=== PATIENT | female | born 1990 | race African-American/Black ===

== ENCOUNTER 2020-08-15 17:42 | Observation (INO) ==
[2020-08-15] MEDS ORDERED: ONDANSETRON 4 MG/2 ML VIAL IV STA (18:50)
[2020-08-15] MEDS ORDERED: SODIUM CHLORIDE 0.9% 500 ML IV STA (18:50)
[2020-08-15 19:19] LABS: Basophils % 0.4 % (0.0-0.8); Eosinophils % 0.4 % (0.00-10.9); Hematocrit 26.2 VOL% (35.7-47.0); Hemoglobin 7.6 GM/DL (12.0-16.0); Immature Granulocytes % 0.4 %; Immature Granulocytes Absolute 0.02 #; Lymphocytes # 0.7 10*3/uL (1.4-4.0); Lymphocytes % 13.7 % (21.3-54.2); Mean Corpuscular Volume 87.9 FL (87-102); Mean Platelet Volume 10.6 FL (9.6-12.0); Monocytes % 5.7 % (1.7-12.7); Neutrophils % 79.4 % (38.7-73.9); Platelet Count 270 T/CUMM (130-400); Red Blood Count 2.98 MC/CUMM (3.8-5.5); Red Cell Distribution Width 22.1 % (9.3-17.3); White Blood Count 5.1 T/CUMM (4-12)
[2020-08-15 19:25] LABS: Bilirubin,Urine Negative (Negative); Blood, Urine Small mg/dL (Negative); Glucose,Urine (UA) Negative (Negative); Ketones,Urine 5 mg/dL (Negative); Mucus,Urine Many /LPF (Occasional); Nitrite,Urine Negative (Negative); Protein,Urine 100 MG/DL; RBC,Urine 5 /HPF (0-4); Squamous Epithelial Cell,Urine Occasional /HPF (0-10); Urine Appearance CLEAR (Clear); Urine Color Amber (Yellow); Urine Specific Gravity 1.038 (1.001-1.035); Urine Urobilinogen < 2.0 EU/DL (0.2-1.0)
[2020-08-15 19:43] LABS: Alanine Aminotransferase 29 U/L (13-56); Albumin 3.8 G/DL (3.4-5.0); Alkaline Phosphatase 65 U/L (45-117); Aspartate Amino Transferase 46 U/L (0-37); Bilirubin,Total < 0.39 MG/DL (0.20-1.00); Blood Urea Nitrogen 8 MG/DL (7-18); Calcium 8.9 MG/DL (8.5-10.1); Carbon Dioxide 25 MMOL/L (21-32); Estimated Glom Filtration Rate 134 ML/MIN; Glucose 86 MG/DL (74-106); Osmolality,Calculated 279.1 MOS/KG (273-304); Potassium 3.6 MMOL/L (3.5-5.1); Sodium 142 MMOL/L (136-145); Total Protein 7.9 G/DL (6.4-8.2)
[2020-08-15] MEDS ORDERED: MORPHINE 10 MG/1 ML VIAL IV ONE (19:55)
[2020-08-15] MEDS ORDERED: MORPHINE 2 MG/1 ML SYRINGE ONE (20:10)
[2020-08-15 20:20] LABS: Lymphocytes 16 % (20-55); Segmented Neutrophils 79 % (50-85); Total Cells Counted 100
[2020-08-15 20:21] LABS: Hypochromasia 2+; Microcytosis 1+; Platelet Estimate Increased; Polychromasia Slight
[2020-08-15] MEDS ORDERED: SODIUM CHLORIDE 0.9% 1,000 ML IV PRN (23:21)
[2020-08-15] MEDS ORDERED: ENOXAPARIN 40 MG/0.4 ML SYRINGE SUBCUT STA (23:23)
[2020-08-15 23:39] LABS: PT Patient Result 11.4 SECS (10.5-12.0)
[2020-08-16] MEDS ORDERED: diphenhydrAMINE CAP 25 MG CAPSULE PO PRN (00:19)
[2020-08-16] MEDS ORDERED: ZALEPLON 5 MG CAPSULE PO PRN (00:19)
[2020-08-16] MEDS ORDERED: guaiFENesin/DM ER 600-30 MG TABLET PO PRN (00:19)
[2020-08-16] MEDS ORDERED: DEXTROSE 50% 25 GM/50 ML VIAL IV PRN (00:19)
[2020-08-16] MEDS ORDERED: hydrALAZINE 20 MG/1 ML VIAL IV PRN (00:19)
[2020-08-16] MEDS ORDERED: NICOTINE 21 MG/24 HR PATCH TRANSDERM PRN (00:19)
[2020-08-16] MEDS ORDERED: ONDANSETRON 4 MG/2 ML VIAL IV PRN (00:19)
[2020-08-16] MEDS ORDERED: ACETAMINOPHEN 325 MG TABLET PO PRN (00:19)
[2020-08-16] MEDS ORDERED: GLUCAGON 1 MG VIAL IM PRN (00:19)
[2020-08-16] MEDS: MORPHINE 2 MG/1 ML SYRINGE IV PRN ×4 (01:49→20:47)
[2020-08-16 05:14] LABS: Basophils % 0.4 % (0.0-0.8); Eosinophils % 0.6 % (0.00-10.9); Hematocrit 25.3 VOL% (35.7-47.0); Hemoglobin 7.2 GM/DL (12.0-16.0); Immature Granulocytes % 0.4 %; Immature Granulocytes Absolute 0.02 #; Lymphocytes # 1.3 10*3/uL (1.4-4.0); Lymphocytes % 25.8 % (21.3-54.2); Mean Corpuscular HGB Conc 28.5 GM/DL (32-36); Mean Corpuscular Volume 89.1 FL (87-102); Mean Platelet Volume 10.5 FL (9.6-12.0); Monocytes % 6.6 % (1.7-12.7); Neutrophils % 66.2 % (38.7-73.9); Platelet Count 239 T/CUMM (130-400); Red Blood Count 2.84 MC/CUMM (3.8-5.5); Red Cell Distribution Width 21.6 % (9.3-17.3)
[2020-08-16 05:15] LABS: Basophils % 0.2 % (0.0-0.8); Eosinophils % 0.8 % (0.00-10.9); Hematocrit 24.9 VOL% (35.7-47.0); Hemoglobin 7.3 GM/DL (12.0-16.0); Immature Granulocytes % 0.2 %; Immature Granulocytes Absolute 0.01 #; Lymphocytes # 1.2 10*3/uL (1.4-4.0); Lymphocytes % 24.7 % (21.3-54.2); Mean Corpuscular HGB Conc 29.3 GM/DL (32-36); Mean Corpuscular Volume 86.8 FL (87-102); Mean Platelet Volume 10.3 FL (9.6-12.0); Neutrophils % 67.1 % (38.7-73.9); Platelet Count 226 T/CUMM (130-400); Red Blood Count 2.87 MC/CUMM (3.8-5.5); Red Cell Distribution Width 21.5 % (9.3-17.3); White Blood Count 4.7 T/CUMM (4-12)
[2020-08-16 05:37] LABS: Calcium 8.9 MG/DL (8.5-10.1); Osmolality,Calculated 275.4 MOS/KG (273-304); Potassium 3.3 MMOL/L (3.5-5.1)
[2020-08-16 05:45] LABS: Folate 6.85 NG/ML (5.38-24.0); Vitamin B12 381 PG/ML (211-911)
[2020-08-16 06:15] LABS: Sedimentation Rate-Westergren 54 MM/HR (0-20)
[2020-08-16 08:32] LABS: Hemoglobin A1 (Alkaline) 97.8 % (96.5-98.5); Hemoglobin A2 (Alkaline) 2.2 % (1.5-3.5)
[2020-08-16] MEDS: PANTOPRAZOLE 40 MG TABLET PO SCH (08:47)
[2020-08-16] MEDS: BISACODYL 5 MG TABLET PO SCH (08:50)
[2020-08-16] MEDS ORDERED: IRON SUCROSE 200 MG in SODIUM CHLORIDE 0.9% 100 ML IV SCH (09:00)
[2020-08-16] MEDS: FERRIC GLUCONATE COMPLEX 125 MG in SODIUM CHLORIDE 0.9% 100 ML IV SCH (10:48)
[2020-08-16 12:41] LABS: Bacteria,Urine Occasional /HPF (Few); Bilirubin,Urine Negative (Negative); Blood, Urine Large mg/dL (Negative); Glucose,Urine (UA) Negative (Negative); Ketones,Urine 5 mg/dL (Negative); Mucus,Urine Occasional /LPF (Occasional); Nitrite,Urine Negative (Negative); Protein,Urine 30 MG/DL; RBC,Urine 10 /HPF (0-4); Squamous Epithelial Cell,Urine Occasional /HPF (0-10); Urine Appearance CLEAR (Clear); Urine Color Yellow (Yellow); Urine Specific Gravity 1.041 (1.001-1.035); Urine Urobilinogen < 2.0 EU/DL (0.2-1.0)
[2020-08-16] MEDS ORDERED: SODIUM CHLORIDE 0.9% 1,000 ML IV PRN (14:25)
[2020-08-16] MEDS ORDERED: POTASSIUM CHLORIDE 20 MEQ TABLET PO ONE (14:40)
[2020-08-16 19:21] LABS: Barbiturates Screen,Urine Negative (Negative); Benzodiazepines Screen,Urine Negative (Negative); Cannabinoid Screen,Urine Positive (Negative); Opiate Screen,Urine Positive (Negative); Phencyclidine Screen,Urine Negative (Negative)
[2020-08-16] MEDS: VENLAFAXINE 75 MG TABLET PO SCH (20:42)
[2020-08-17] MEDS: MORPHINE 2 MG/1 ML SYRINGE IV PRN ×3 (00:51→23:17)
[2020-08-17 08:53] LABS: Basophils % 0.2 % (0.0-0.8); Eosinophils # 0.1 10*3/uL (0.0-0.87); Eosinophils % 1.3 % (0.00-10.9); Hematocrit 30.6 VOL% (35.7-47.0); Immature Granulocytes % 0.4 %; Immature Granulocytes Absolute 0.02 #; Lymphocytes # 1.3 10*3/uL (1.4-4.0); Lymphocytes % 27.9 % (21.3-54.2); Mean Corpuscular HGB Conc 31.4 GM/DL (32-36); Mean Corpuscular Volume 86.9 FL (87-102); Mean Platelet Volume 10.1 FL (9.6-12.0); Monocytes % 6.7 % (1.7-12.7); Neutrophils % 63.5 % (38.7-73.9); Platelet Count 220 T/CUMM (130-400); Red Cell Distribution Width 19.3 % (9.3-17.3); White Blood Count 4.8 T/CUMM (4-12)
[2020-08-17] MEDS ORDERED: POTASSIUM CHLORIDE 20 MEQ TABLET PO SCH (09:00)
[2020-08-17 09:01] LABS: Hemoglobin 9.6 GM/DL (12.0-16.0); Red Blood Count 3.52 MC/CUMM (3.8-5.5)
[2020-08-17 09:26] LABS: Calcium 8.5 MG/DL (8.5-10.1); Osmolality,Calculated 278.4 MOS/KG (273-304); Potassium 3.1 MMOL/L (3.5-5.1)
[2020-08-17] MEDS: FERROUS SULFATE 325 MG TABLET PO SCH (09:30)
[2020-08-17] MEDS: BISACODYL 5 MG TABLET PO SCH (09:30)
[2020-08-17] MEDS: FERRIC GLUCONATE COMPLEX 125 MG in SODIUM CHLORIDE 0.9% 100 ML IV SCH (09:31)
[2020-08-17] MEDS: PANTOPRAZOLE 40 MG TABLET PO SCH (09:32)
[2020-08-17] MEDS ORDERED: ENOXAPARIN 40 MG/0.4 ML SYRINGE SUBCUT SCH (14:30)
[2020-08-17] MEDS: VENLAFAXINE 75 MG TABLET PO SCH (22:51)
[2020-08-17] MEDS: POTASSIUM CHLORIDE 20 MEQ TABLET PO SCH (22:52)
[2020-08-18] MEDS: MORPHINE 2 MG/1 ML SYRINGE IV PRN (04:11)
[2020-08-18 05:05] LABS: Basophils % 0.1 % (0.0-0.8); Eosinophils # 0.1 10*3/uL (0.0-0.87); Eosinophils % 1.3 % (0.00-10.9); Hematocrit 31.6 VOL% (35.7-47.0); Hemoglobin 9.6 GM/DL (12.0-16.0); Immature Granulocytes % 0.5 %; Immature Granulocytes Absolute 0.04 #; Lymphocytes # 1.2 10*3/uL (1.4-4.0); Lymphocytes % 15.8 % (21.3-54.2); Mean Corpuscular HGB Conc 30.4 GM/DL (32-36); Mean Corpuscular Volume 88.8 FL (87-102); Mean Platelet Volume 10.4 FL (9.6-12.0); Monocytes % 6.4 % (1.7-12.7); Neutrophils % 75.9 % (38.7-73.9); Platelet Count 260 T/CUMM (130-400); Red Blood Count 3.56 MC/CUMM (3.8-5.5); Red Cell Distribution Width 19.1 % (9.3-17.3); White Blood Count 7.7 T/CUMM (4-12)
[2020-08-18 05:28] LABS: Calcium 8.6 MG/DL (8.5-10.1); Osmolality,Calculated 275.4 MOS/KG (273-304); Potassium 4.1 MMOL/L (3.5-5.1)
[2020-08-18 06:01] LABS: Eosinophils 2 % (0-10); Lymphocytes 11 % (20-55); Platelet Estimate Normal; Segmented Neutrophils 83 % (50-85); Total Cells Counted 100
[2020-08-18 06:02] LABS: Hypochromasia Slight
[2020-08-18] MEDS ORDERED: RIVAROXABAN 20 MG TABLET PO SCH (08:00)
[2020-08-18] MEDS: POTASSIUM CHLORIDE 20 MEQ TABLET PO SCH (10:29)
[2020-08-18] MEDS: FERROUS SULFATE 325 MG TABLET PO SCH (10:30)
[2020-08-18] MEDS: PANTOPRAZOLE 40 MG TABLET PO SCH (10:30)
[2020-08-18] MEDS: FERRIC GLUCONATE COMPLEX 125 MG in SODIUM CHLORIDE 0.9% 100 ML IV SCH (10:31)
[2020-08-18] MEDS: BISACODYL 5 MG TABLET PO SCH (10:31)
[2020-08-18 12:48] VITALS: BP 137/80
[2020-08-20 11:56] LABS: Protein C Activity Plasma 111 % (70 - 150); Protein S Ag (Free) 140 % (50 - 160)
[2020-08-20 18:36] LABS: Phospholipid Ab IgM, S 10.6 MPL
[2020-08-21 10:01] LABS: Coag Factor VIII Activity Assa 157 % (55 - 200)
[2020-08-21 10:21] LABS: DRVVT Screen Ratio 0.92 ratio (<1.20); INR 1.1 (0.9-1.1)
[2020-08-21 13:26] LABS: Beta-2 Glycoprotein 1 IgA Ab < 9.4 U/mL
[2020-08-22 09:01] LABS: Homocysteine 11.8 nmol/mL (4.3-11.4)
[2020-08-22 17:17] LABS: Protein C, Total Antigen 87 % (63-153)
[2020-08-22 21:00] LABS: PTNT Reviewed By SEE COMMENTS
== END 2020-08-18 15:15 | disposition home or self-care (01) ==
LOC: N.EDINP 17:42 → N.ED 17:42 → SUATTDRO 08-16 00:19 → N.EDINP 08-16 02:45 → N.TELEN 08-16 02:53
PROVIDERS: ADMIT Emergency Medicine; ATTEND Hospitalist

== ENCOUNTER 2021-01-05 21:09 | Observation (INO) ==
[2021-01-05 22:00] LABS: Allen Test Positive
[2021-01-05 22:01] LABS: ABG Base Excess -0.8 MMOL/L (-2.5-2.5); ABG HCO3 23.8 MMOL/L (20-26); ABG PCO2 38.5 MM HG (35-48); ABG PH 7.399 (7.35-7.45); ABG TCO2 21.3 MMOL/L (23-27)
[2021-01-05 22:19] LABS: Basophils % 0.6 % (0.0-0.8); Eosinophils % 0.4 % (0.00-10.9); Hemoglobin 11.1 GM/DL (12.0-16.0); Immature Granulocytes % 0.2 %; Immature Granulocytes Absolute 0.01 #; Lymphocytes # 1.8 10*3/uL (1.4-4.0); Lymphocytes % 38.6 % (21.3-54.2); Mean Corpuscular HGB Conc 31.7 GM/DL (32-36); Mean Corpuscular Volume 93.1 FL (87-102); Mean Platelet Volume 10.4 FL (9.6-12.0); Monocytes % 6.8 % (1.7-12.7); Neutrophils % 53.4 % (38.7-73.9); Platelet Count 231 T/CUMM (130-400); Red Blood Count 3.76 MC/CUMM (3.8-5.5); Red Cell Distribution Width 14.8 % (9.3-17.3); White Blood Count 4.7 T/CUMM (4-12)
[2021-01-05 22:26] LABS: Bilirubin,Urine Negative (Negative); Blood, Urine Moderate mg/dL (Negative); Glucose,Urine (UA) Negative (Negative); Ketones,Urine Negative (Negative); Nitrite,Urine Negative (Negative); Protein,Urine Negative; RBC,Urine <1 /HPF (0-4); Urine Appearance CLEAR (Clear); Urine Color Colorless (Yellow); Urine Specific Gravity 1.002 (1.001-1.035); Urine Urobilinogen < 2.0 EU/DL (0.2-1.0)
[2021-01-05 22:36] LABS: Barbiturates Screen,Urine Negative (Negative); Benzodiazepines Screen,Urine Positive (Negative); Cannabinoid Screen,Urine Negative (Negative); Opiate Screen,Urine Negative (Negative); Phencyclidine Screen,Urine Negative (Negative)
[2021-01-05 22:40] LABS: Anisocytosis Slight; Hypochromasia 1+; Lymphocytes 39 % (20-55); Platelet Estimate Adequate; Segmented Neutrophils 55 % (50-85); Target Cells Few; Total Cells Counted 100
[2021-01-05 22:55] LABS: Alanine Aminotransferase 22 U/L (13-56); Albumin 3.7 G/DL (3.4-5.0); Alkaline Phosphatase 64 U/L (45-117); Aspartate Amino Transferase 27 U/L (0-37); Bilirubin,Total < 0.39 MG/DL (0.20-1.00); Blood Urea Nitrogen 5 MG/DL (7-18); Calcium 8.6 MG/DL (8.5-10.1); Carbon Dioxide 24 MMOL/L (21-32); Estimated Glom Filtration Rate 148 ML/MIN; Glucose 76 MG/DL (74-106); Osmolality,Calculated 274.4 MOS/KG (273-304); Potassium 2.6 MMOL/L (3.5-5.1); Sodium 140 MMOL/L (136-145); Total Protein 8.7 G/DL (6.4-8.2)
[2021-01-05] MEDS ORDERED: THIAMINE INJ 100 MG, FOLIC ACID INJ 1 MG, MAGNESIUM SULF INJ 2 GM, MULTIVITAMIN INJ 10 ... IV ONE (23:00)
[2021-01-05] MEDS ORDERED: DEXTROSE 50% 25 GM/50 ML SYRINGE IV PRN (23:37)
[2021-01-05] MEDS ORDERED: ONDANSETRON 4 MG/2 ML VIAL IV PRN (23:37)
[2021-01-05] MEDS ORDERED: POTASSIUM CHLORIDE RIDER 10 MEQ/100 ML PREMIX IV PRN (23:37)
[2021-01-05] MEDS ORDERED: GLUCAGON 1 MG VIAL IM PRN (23:37)
[2021-01-05] MEDS: POTASSIUM CHLORIDE INJ 40 MEQ in SODIUM CHLORIDE 0.45% 1,000 ML IV SCH (23:41)
[2021-01-06] MEDS: ACETAMINOPHEN 325 MG TABLET PO PRN ×2 (02:31→06:32)
[2021-01-06 02:50] LABS: Basophils % 0.8 % (0.0-0.8); Eosinophils # 0.1 10*3/uL (0.0-0.87); Hemoglobin 11.5 GM/DL (12.0-16.0); Immature Granulocytes % 0.2 %; Immature Granulocytes Absolute 0.01 #; Lymphocytes # 2.7 10*3/uL (1.4-4.0); Lymphocytes % 52.3 % (21.3-54.2); Mean Corpuscular HGB Conc 31.1 GM/DL (32-36); Mean Platelet Volume 10.4 FL (9.6-12.0); Monocytes % 7.5 % (1.7-12.7); Neutrophils % 38.2 % (38.7-73.9); Platelet Count 226 T/CUMM (130-400); Red Blood Count 3.98 MC/CUMM (3.8-5.5); Red Cell Distribution Width 14.6 % (9.3-17.3); White Blood Count 5.2 T/CUMM (4-12)
[2021-01-06 03:17] LABS: Calcium 8.5 MG/DL (8.5-10.1); Osmolality,Calculated 274.4 MOS/KG (273-304); Potassium 2.9 MMOL/L (3.5-5.1)
[2021-01-06 03:32] LABS: Risk Ratio 1.97; VLDL Cholesterol 25.2 MG/DL
[2021-01-06 03:49] LABS: Lymphocytes 57 % (20-55); Platelet Estimate Adequate; Segmented Neutrophils 36 % (50-85); Total Cells Counted 100
[2021-01-06 03:50] LABS: Hypochromasia Slight; Microcytosis Slight
[2021-01-06 03:51] LABS: Atypical Lymphocytes Few
[2021-01-06] MEDS: POTASSIUM CHLORIDE 20 MEQ TABLET PO SCH ×2 (09:00→11:52)
[2021-01-06] MEDS ORDERED: ENOXAPARIN 40 MG/0.4 ML SYRINGE SUBCUT SCH (09:00)
[2021-01-06] MEDS ORDERED: PANTOPRAZOLE 40 MG TABLET PO SCH (09:00)
[2021-01-06 11:18] VITALS: BP 141/95
[2021-01-06] MEDS: POTASSIUM CHLORIDE INJ 40 MEQ in SODIUM CHLORIDE 0.45% 1,000 ML IV SCH (11:53)
[2021-01-06] MEDS ORDERED: POTASSIUM CHLORIDE 20 MEQ TABLET PO SCH (12:00)
== END 2021-01-06 15:08 | disposition home or self-care (01) ==
LOC: EDBD → EDUNIT# → N.ED 21:09 → N.EDINP 21:09 → N.3E 01-06 01:43
PROVIDERS: ADMIT Internal Medicine; ATTEND Internal Medicine